=== PATIENT | male | born 1945 | race Caucasian/White ===

== ENCOUNTER 2020-09-07 10:54 | Observation (INO) | payer MEDICARE ==
[~2020-09-07] VITALS: Ht 167.6 cm; Wt 84.4 kg
[2020-09-07 11:00] VITALS: BP 130/72
[2020-09-07 11:17] LABS: BASO # 0.1 10*3/uL (0.0-0.1); BASO % 0.8 % (0.0-1.0); EOS # 0.3 10*3/uL (0.0-0.4); EOS % 3.3 % (1.0-4.0); HEMATOCRIT 45.3 % (42.0-52.0); LYMPH # 0.9 10*3/uL (1.3-4.4); MEAN CELL VOLUME 88.3 fl (80.0-94.0); MEAN CORPUSCULAR HGB 27.7 pg (27.0-31.0); MEAN CORPUSCULAR HGB CONC 31.3 g/dl (33.0-37.0); MONO # 0.8 10*3/uL (0.1-1.0); MONO % 7.9 % (3.0-9.0); NEUT # 7.5 10*3/uL (2.3-7.9); NEUT % 78.7 % (47.0-73.0); PLATELET COUNT AUTOMATED 212 10*3/uL (130-400); RED BLOOD COUNT 5.13 10*6/uL (4.50-5.90); RED CELL DISTRI WIDTH 13.6 % (0-14.5); WHITE BLOOD COUNT 9.5 10*3/uL (4.8-10.8)
[2020-09-07 11:28] LABS: ACT PARTIAL THROMBO TIME 25.4 SECONDS (20.0-32.1)
[2020-09-07 11:36] LABS: ALBUMIN 3.3 gm/dl (3.1-4.5); ALKALINE PHOSPHATASE 65 U/L (45-117); BUN 22 mg/dl (7-24); CHLORIDE 109 mmol/L (98-107); CREATININE 1.43 mg/dL (0.70-1.30); POTASSIUM 4.2 mmol/L (3.5-5.1); SGOT/AST 10 IU/L (3-35); SGPT/ALT 21 U/L (12-78); SODIUM 140 mmol/L (136-145); TOTAL PROTEIN 6.1 gm/dL (6.4-8.2)
[2020-09-07 11:39] LABS: TROPONIN I < 0.015 ng/ml (<0.045)
[2020-09-07 13:45] VITALS: BP 151/81
[2020-09-07 14:00] VITALS: BP 122/69
[2020-09-07] MEDS ORDERED: TYLENOL EXTRA500 M2 PO (15:23)
[2020-09-07] MEDS ORDERED: PREDNISONE2.5 MG PO (15:24)
[2020-09-07] MEDS ORDERED: PLAQUENIL200 MG PO (15:25)
[2020-09-07] MEDS ORDERED: CLARITIN10 MG PO (15:25)
[2020-09-07] MEDS ORDERED: MOBIC15 MG PO (15:26)
[2020-09-07 16:00] VITALS: BP 118/71
[2020-09-07 20:00] VITALS: BP 112/90
[2020-09-08] VITALS: BP 125/65
[2020-09-08 05:45] LABS: BUN 29 mg/dl (7-24); CHLORIDE 112 mmol/L (98-107); CREATININE 1.35 mg/dL (0.70-1.30); POTASSIUM 4.6 mmol/L (3.5-5.1); SODIUM 143 mmol/L (136-145)
[2020-09-08 08:00] VITALS: BP 136/74
[2020-09-08 14:00] VITALS: BP 118/68
== END 2020-09-08 16:05 | disposition home or self-care (01) ==
LOC: ED 10:54 → EDHOLD 12:36 → 4E 13:26
PROVIDERS: Emergency Medicine; Student in an Organized Health Care Education/Training Program; ADMIT Emergency Medicine; ATTEND Emergency Medicine
DX: R55 Syncope and collapse (principal); R42 Dizziness and giddiness; E87.8 Other disorders of electrolyte and fluid balance, not elsewhere classified; E66.9 Obesity, unspecified; R00.1 Bradycardia, unspecified; R73.9 Hyperglycemia, unspecified; E44.0 Moderate protein-calorie malnutrition; D86.9 Sarcoidosis, unspecified; K21.9 Gastro-esophageal reflux disease without esophagitis; J30.2 Other seasonal allergic rhinitis; M19.90 Unspecified osteoarthritis, unspecified site; N18.30 Chronic kidney disease, stage 3 unspecified; Z79.899 Other long term (current) drug therapy; Z20.828 Contact with and (suspected) exposure to other viral communicable diseases

== ENCOUNTER 2022-05-17 07:12 | Emergency (ER) | payer MEDICARE ==
[~2022-05-17] VITALS: Ht 167.6 cm; Wt 72.6 kg
[~2022-05-17 07:12] MED LIST: CLARITIN10 MG PO; DECADRON6 M1 PO; MOBIC15 MG PO; PLAQUENIL200 MG PO; PREDNISONE2.5 MG PO; TYLENOL EXTRA500 M2 PO
[2022-05-17 07:50] LABS: BASO # 0.1 10*3/uL (0.0-0.1); EOS # 0.2 10*3/uL (0.0-0.4); EOS % 2.5 % (1.0-4.0); HEMATOCRIT 45.5 % (42.0-52.0); LYMPH # 1.1 10*3/uL (1.3-4.4); LYMPH % 16.5 % (27.0-41.0); MEAN CELL VOLUME 88.2 fl (80.0-94.0); MEAN CORPUSCULAR HGB 28.9 pg (27.0-31.0); MEAN CORPUSCULAR HGB CONC 32.7 g/dl (33.0-37.0); MEAN PLATELET VOLUME 9.8 fl (9.6-12.3); MONO # 0.6 10*3/uL (0.1-1.0); MONO % 8.7 % (3.0-9.0); NEUT # 4.9 10*3/uL (2.3-7.9); PLATELET COUNT AUTOMATED 239 10*3/uL (130-400); RED BLOOD COUNT 5.16 10*6/uL (4.50-5.90); RED CELL DISTRI WIDTH 13.4 % (0-14.5); WHITE BLOOD COUNT 6.9 10*3/uL (4.8-10.8)
[2022-05-17] MEDS ORDERED: DONEPEZIL HYDROC5 MG PO (07:50)
[2022-05-17] MEDS ORDERED: MELOXICAM7.5 MG PO (07:51)
[2022-05-17] MEDS ORDERED: Atrovent 0.03%30 ML NAS (07:51)
[2022-05-17] MEDS ORDERED: SERTRALINE HYDR50 MG PO (07:55)
[2022-05-17] MEDS ORDERED: VITAMIN C100 M3 PO (07:56)
[2022-05-17] MEDS ORDERED: VITAMIN D325 MC1 PO (07:58)
[2022-05-17] MEDS ORDERED: VOLTAREN ARTHRI20 GM T (08:00)
[2022-05-17 08:01] LABS: ACT PARTIAL THROMBO TIME 25.8 SECONDS (20.0-32.1)
[2022-05-17 08:08] LABS: ALKALINE PHOSPHATASE 66 U/L (45-117); BUN 22 mg/dl (7-24); CHLORIDE 111 mmol/L (98-107); CREATININE 1.37 mg/dL (0.70-1.30); POTASSIUM 3.7 mmol/L (3.5-5.1); SGOT/AST 17 IU/L (3-35); SGPT/ALT 25 U/L (12-78); SODIUM 144 mmol/L (136-145); TOTAL PROTEIN 6.6 gm/dL (6.4-8.2)
== END 2022-05-17 12:10 | disposition home or self-care (01) ==
LOC: ED
PROVIDERS: Emergency Medicine
DX: R19.7 Diarrhea, unspecified (principal); R11.2 Nausea with vomiting, unspecified; R10.9 Unspecified abdominal pain; Z79.899 Other long term (current) drug therapy; Z90.49 Acquired absence of other specified parts of digestive tract

== ENCOUNTER 2023-01-28 09:18 | Emergency (ER) | payer MEDICARE ==
[~2023-01-28 09:18] MED LIST changes: +Atrovent 0.03%30 ML NAS; +DONEPEZIL HYDROC5 MG PO; +MELOXICAM7.5 MG PO; +SERTRALINE HYDR50 MG PO; +VITAMIN C100 M3 PO; +VITAMIN D325 MC1 PO; +VOLTAREN ARTHRI20 GM T
[2023-01-28 10:38] LABS: BASO % 0.7 % (0.0-1.0); EOS # 0.3 10*3/uL (0.0-0.4); EOS % 4.3 % (1.0-4.0); HEMATOCRIT 44.5 % (42.0-52.0); LYMPH # 0.7 10*3/uL (1.3-4.4); LYMPH % 11.2 % (27.0-41.0); MEAN CELL VOLUME 91.4 fl (80.0-94.0); MEAN CORPUSCULAR HGB 28.5 pg (27.0-31.0); MEAN CORPUSCULAR HGB CONC 31.2 g/dl (33.0-37.0); MEAN PLATELET VOLUME 9.6 fl (9.6-12.3); MONO # 0.7 10*3/uL (0.1-1.0); MONO % 11.9 % (3.0-9.0); NEUT # 4.3 10*3/uL (2.3-7.9); NEUT % 71.6 % (47.0-73.0); PLATELET COUNT AUTOMATED 219 10*3/uL (130-400); RED BLOOD COUNT 4.87 10*6/uL (4.50-5.90); RED CELL DISTRI WIDTH 13.2 % (0-14.5); WHITE BLOOD COUNT 6.1 10*3/uL (4.8-10.8)
[2023-01-28 10:47] LABS: ACT PARTIAL THROMBO TIME 36.2 SECONDS (20.0-32.1)
[2023-01-28 11:13] LABS: ALKALINE PHOSPHATASE 79 U/L (46-116); BUN 21 mg/dl (9-23); CHLORIDE 108 mmol/L (98-107); LIPASE 44 U/L (12-53); POTASSIUM 4.4 mmol/L (3.4-5.1); SGPT/ALT 31 U/L (10-49); TOTAL PROTEIN 6.5 gm/dL (6.0-8.0)
[2023-01-28] MEDS ORDERED: LIDEX 0.05% CRE15 GM T (13:07)
[2023-01-28] MEDS ORDERED: [UNRECOGNIZED DRUG - OTHER] PO (13:08)
[2023-01-28] MEDS ORDERED: CITALOPRAM20 MG PO (13:10)
== END 2023-01-28 14:57 | disposition home or self-care (01) ==
LOC: ED 09:18
PROVIDERS: Emergency Medicine
DX: U07.1 COVID-19 (principal); Z90.49 Acquired absence of other specified parts of digestive tract; Z20.822 Contact with and (suspected) exposure to COVID-19